=== PATIENT | male | born 1995 | race African-American/Black ===

== ENCOUNTER 2017-07-03 02:37 | Day surgery (SDC) | payer OTHER ==
[~2017-07-03] VITALS: Ht 190.5 cm; Wt 77.6 kg
[2017-07-03] VITALS (8 sets, daily range): BP systolic 125–147; BP diastolic 76–98
[2017-07-03] MEDS ORDERED: ROPIVACAINE 0.5% 20 ML VIAL ONE (11:01)
[2017-07-03] MEDS ORDERED: ROPIVACAINE 0.2% 20 ML VIAL ONE ×2 (11:01→12:44)
[2017-07-03] MEDS ORDERED: DEXAMETHASONE SOD PHOS 10MG/ML ONE (11:03)
[2017-07-03] MEDS ORDERED: LIDOCAINE MPF 1% 5 ML VIAL ONE (11:06)
[2017-07-03] MEDS ORDERED: fentaNYL CITR 100 MCG/2 ML AMP ONE ×3 (11:08→14:01)
[2017-07-03] MEDS ORDERED: PROPOFOL EMUL(*) 10MG/ML 20 ML 20 ML ONE (11:09)
[2017-07-03] MEDS ORDERED: NORMOSOL R SOLN(*) 1000 ML BAG 1,000 ML IV PRN (12:50)
[2017-07-03] MEDS ORDERED: ceFAZolin(*) 2GM/D5W 50ML 50 ML IVPB ONE (12:50)
[2017-07-03] MEDS ORDERED: CELECOXIB 200 MG CAP PO ONE (12:50)
[2017-07-03] MEDS ORDERED: LIDOCAINE/SOD BICARB 8.4% SYR ID ONE (12:50)
[2017-07-03] MEDS ORDERED: FAMOTIDINE 20 MG TAB PO ONE (12:50)
[2017-07-03] MEDS ORDERED: MIDAZOLAM 2 MG/2 ML VIAL IVP PRN (12:50)
[2017-07-03] MEDS ORDERED: ONDANSETRON 4 MG/2 ML VIAL ONE (13:11)
[2017-07-03] MEDS ORDERED: KET10 PO (15:21)
[2017-07-03] MEDS: fentaNYL CITR 100 MCG/2 ML AMP ONE (15:25)
[2017-07-03] MEDS ORDERED: OXYC5TAB38 PO (15:33)
[2017-07-03] MEDS ORDERED: KETOROLAC 30 MG/ML VIAL ONE (16:03)
--- NOTE | 2017-07-04 15:17 | OPERATIVE REPORT 1 ---
EVENT DATE: July 03, 2017 SURGEON: Kiran Peace MD ANESTHESIOLOGIST: Magdiel Norton MD ANESTHESIA: Left interscalene block, followed by general. 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 PROCEDURE PERFORMED Left shoulder arthroscopy with anterior inferior chronic Bankart lesion repair with capsular plication. IMPLANTS USED Three Biomet 1.5 mm Juggernaut suture anchors. SPECIMENS None. COMPLICATIONS None. BLOOD LOSS Minimal. DESCRIPTION OF OPERATION Patient received appropriate preoperative antibiotics. He was brought to the OR where Dr. Norton performed left interscalene block, followed by general anesthesia. Patient was then placed in right lateral decubitus position, left shoulder up with appropriate padding and positioners. Left shoulder was then prepped and draped in the usual sterile fashion, then placed in 12 pounds of traction, no abduction. From posterior approach, the joint was injected with arthroscopic fluid, followed by establishment of a posterior portal, and then I inserted the scope utilizing appropriate landmarks to enter the joint. Immediately noted significant hyperemia and synovial reaction throughout the joint. There was a Hill-Sachs lesion noted. Glenoid articular cartilage was grossly intact, but from 6 o'clock to about 10 o'clock, there was a soft tissue Bankart lesion with significant retraction onto the neck and a mild amount of glenoid erosion. Teres minor, infraspinatus, and supraspinatus tendons were intact. Biceps was intact as well as the anchor. Posterior labrum was intact. Subscapularis was grossly intact. All the inspection was done after we had established an anterior portal through an outside-in technique, and we had probed the tissue. I then utilized a labral elevator to bring the soft tissue off the anterior glenoid. This glenoid neck was then shaved, and by viewing anteriorly, there was bleeding bone noted. We established our first anchor at approximately 6:30 at the glenoid-labral interface. This suture was then passed with a Spectrum suture passer incorporating a small portion of the capsule, anterior inferior glenohumeral ligament, and the remnant of the labrum. We then tied this suture arthroscopically, and this brought our tissue up into an appropriate position anteroinferiorly. It should be noted that we did have a positive drivethrough sign initially. At approximately between 7:30 and 8 o'clock, I established our second anchor, again on the glenoid-labral interface in standard fashion. This suture was once again passed with a Sporthold suture passer and curled, again incorporating capsule portion in the medial glenohumeral ligament and the labrum, and we tied this arthroscopically. Our third anchor was established at approximately between 9 and 9:30, and again, we passed the sutures through the small portion of the capsule and labrum and tied this arthroscopically. All knots were brought away from the surface. We now had a satisfactory bumper. The glenoid articulation which had initially shown the humerus to be anterior was now more centralized. Instrumentation was removed. Port was closed subcutaneously with 4-0 Monocryl, followed by Steri-Strips. We injected the portals only with ropivacaine, followed by the dressing. Patient was placed in an UltraSling in internal rotation. His was extubated and to the recovery room in stable condition. He is recommended Tylenol. He was given a prescription for Toradol and oxycodone. Protocol therapy will start next week. He can shower this coming Monday. We will follow him up in a week's time in [place]. HONG
== END 2017-07-03 16:00 | disposition home or self-care (01) ==
LOC: OR 02:37
PROVIDERS: ATTEND Orthopaedic Surgery
DX: M25.312 Other instability, left shoulder (principal); S43.432A Superior glenoid labrum lesion of left shoulder, initial encounter
CPT/HCPCS: 29807; 76942; A4565; C1713; J1100; J1885; J2001; J2250; J2405; J2704; J2795; J3010; J0690